=== PATIENT | male | born 1960 | race African-American/Black ===

== ENCOUNTER 2016-10-19 15:43 | Emergency (ER) | payer MEDICAID ==
[~2016-10-19] VITALS: Ht 165.1 cm; Wt 66.5 kg
[~2016-10-19 15:43] MED LIST: ENAL2.5T PO; HYDR12.53 PO
[2016-10-19 15:45] VITALS: BP 138/94
[2016-10-19] MEDS ORDERED: CYCLOBENZAPRINE 10 MG TABLET ONE (17:21)
[2016-10-19] MEDS ORDERED: CYCLOBENZAPRINE 10 MG TABLET PO SCH (17:30)
== END 2016-10-19 17:30 | disposition home or self-care (01) ==
LOC: ED 17:24
DX: S70.01XA Contusion of right hip, initial encounter (principal); M19.90 Unspecified osteoarthritis, unspecified site; I10 Essential (primary) hypertension; V03.90XA Pedestrian on foot injured in collision with car, pick-up truck or van, unspecified whether traffic or nontraffic accident, initial encounter; Y93.01 Activity, walking, marching and hiking; Y92.488 Other paved roadways as the place of occurrence of the external cause; Y99.8 Other external cause status
CPT/HCPCS: 72110; 72190; 99284

== ENCOUNTER 2016-10-30 14:46 | Emergency (ER) | payer MEDICAID ==
[~2016-10-30] VITALS: Ht 165.1 cm; Wt 68.4 kg
[2016-10-30 14:47] VITALS: BP 176/109
[2016-10-30] MEDS ORDERED: KETOROLAC 30 MG/1 ML IM ONE (15:00)
[2016-10-30] MEDS ORDERED: METHOCARBAMOL 750 MG TABLET PO ONE (15:00)
[2016-10-30] MEDS ORDERED: METHOCARBAMOL 750 MG TABLET ONE (16:00)
== END 2016-10-30 16:33 | disposition home or self-care (01) ==
LOC: ED 16:20
DX: S39.012A Strain of muscle, fascia and tendon of lower back, initial encounter (principal); I10 Essential (primary) hypertension; G89.29 Other chronic pain; M54.9 Dorsalgia, unspecified; V09.20XA Pedestrian injured in traffic accident involving unspecified motor vehicles, initial encounter; F17.210 Nicotine dependence, cigarettes, uncomplicated; Y93.01 Activity, walking, marching and hiking; Y99.8 Other external cause status; Y92.481 Parking lot as the place of occurrence of the external cause
CPT/HCPCS: 71010; 99283

== ENCOUNTER 2019-05-06 10:36 | Emergency (ER) | payer MEDICAID ==
[~2019-05-06] VITALS: Ht 165.1 cm; Wt 85.0 kg
[~2019-05-06 10:36] MED LIST changes: +HYDR12.517 PO; -HYDR12.53 PO
--- NOTE | 2019-05-06 11:04 | NUR ---
HUMAN SERVICES CASE MANAGER: PT TO ROOM FROM KELLEN LYNN
--- NOTE | 2019-05-06 11:19 | NUR ---
Pt c/o L sided cp since last night. Pt describes pain as "sharp" and 8/10 in severity, states it radiates down his arm. Pt states that he has hx of [place] x10 years ago. Pt speaking in full sentences, resp even and unlabored. Pt placed in gown, positioned for comfort in bed. Continuous heart, oxygen and BP monitors applied, all safety measures observed.
[2019-05-06] MEDS ORDERED: AMLO-150 PO (11:26)
[2019-05-06] MEDS ORDERED: DULO60CA56 PO (11:26)
[2019-05-06] MEDS ORDERED: CHOL10003 PO (11:26)
[2019-05-06] MEDS ORDERED: PREG100C PO (11:26)
--- NOTE | 2019-05-06 11:53 | NUR ---
Report to Francie GIRALDO.
[2019-05-06 11:59] LABS: ALBUMIN 3.8 g/dL (3.4-5.0); ANION GAP 5 mmol/L (5-15); CALCIUM 8.8 mg/dL (8.5-10.1); CHLORIDE 112 mmol/L (98-107)
[2019-05-06 12:02] LABS: MEAN CORPUSCULAR HEMOGLOBIN 27.4 pg (27.5-34.5); MEAN CORPUSCULAR HGB CONC 32.5 g/dL (33.2-36.2); MEAN CORPUSCULAR VOLUME 84.3 fL (81-97); MEAN PLATELET VOLUME 8.4 fL (7.4-10.4); PLATELET COUNT 252 x10^3/uL (130-400); RED BLOOD COUNT 6.32 x10^6/uL (4.38-5.82); RED CELL DISTRIBUTION WIDTH 16.1 % (9.4-14.8)
[2019-05-06 12:04] LABS: ALANINE AMINOTRANSFERASE 64 U/L (12-78); ALKALINE PHOSPHATASE 84 U/L (45-117); BILIRUBIN,TOTAL 0.7 mg/dL (0.2-1.0); CREATININE 1.79 mg/dL (0.7-1.3); TOTAL PROTEIN 7.5 g/dL (6.4-8.2); TROPONIN I < 0.015 ng/mL (0.000-0.045)
[2019-05-06 12:36] VITALS: BP 144/88
--- NOTE | 2019-05-06 12:36 | NUR ---
PT RESTING COMFORTABLY ON GURNEY. ALEC.
[2019-05-06 12:44] LABS: BASOPHILS # (AUTO) 0.03 x10^3/uL (0-0.1); BASOPHILS % (AUTO) 1 % (0-1); EOSINOPHILS # (AUTO) 0.07 x10^3/uL (0-0.4); EOSINOPHILS % (AUTO) 1 % (1-7); LYMPHOCYTES # (AUTO) 1.81 x10^3/uL (1-3.4); LYMPHOCYTES % (AUTO) 34 % (22-44); MD NO; MONOCYTES # (AUTO) 0.41 x10^3/uL (0.2-0.8); MONOCYTES % (AUTO) 8 % (2-9); NEUTROPHILS # (AUTO) 3.04 x10^3/uL (1.8-6.8); NEUTROPHILS % (AUTO) 57 % (42-75)
--- NOTE | 2019-05-06 12:51 | NUR ---
ALL RESULTS ARE BACK AT THIS TIME. CHART UP FOR RECHECK.
== END 2019-05-06 13:16 | disposition home or self-care (01) ==
LOC: ED 12:24
DX: R07.89 Other chest pain (principal); N28.9 Disorder of kidney and ureter, unspecified; I10 Essential (primary) hypertension; I25.2 Old myocardial infarction
CPT/HCPCS: 36415; 71045; 80053; 84484; 85025; 93005; 99285

== ENCOUNTER 2020-06-10 16:14 | Emergency (ER) | payer MEDICAID ==
[~2020-06-10] VITALS: Ht 165.1 cm; Wt 81.0 kg
[~2020-06-10 16:14] MED LIST changes: +AMLO-150 PO; +CHOL10003 PO; +DULO60CA56 PO; -ENAL2.5T PO; +ENAL2.5T8 PO; +PREG100C PO
--- NOTE | 2020-06-10 16:55 | NUR ---
LT SIDED CP RADIATING DOWN LT ARM AND INTERMITTENTLY IN RT ARM, DIZZINESS X2 DAYS. PT IN BED IN GOWN WITH CONT BEATER TENDER, SPO2, BP Q 30 MIN, SIDE RAILS UP X2,CALL LIGHT IN REACH.
[2020-06-10] MEDS ORDERED: ASPIRIN 81 MG TABLET CHEW ONE (17:15)
[2020-06-10 17:22] LABS: BASOPHILS % (AUTO) 1 % (0-1); EOSINOPHILS % (AUTO) 3 % (1-7); LYMPHOCYTES % (AUTO) 30 % (22-44); MD NO; MEAN CORPUSCULAR HEMOGLOBIN 27.9 pg (27.5-34.5); MEAN CORPUSCULAR HGB CONC 32.9 g/dL (33.2-36.2); MEAN PLATELET VOLUME 8.6 fL (7.4-10.4); MONOCYTES % (AUTO) 8 % (2-9); NEUTROPHILS % (AUTO) 58 % (42-75); PLATELET COUNT 243 x10^3/uL (130-400); RED BLOOD COUNT 5.62 x10^6/uL (4.38-5.82); RED CELL DISTRIBUTION WIDTH 15.1 % (9.4-14.8)
[2020-06-10 17:28] VITALS: BP 171/93
--- NOTE | 2020-06-10 17:28 | NUR ---
PT RESTING COMFORTABLY. CALL LIGHT WITHIN REACH
[2020-06-10 17:30] LABS: ALBUMIN 3.3 g/dL (3.4-5.0); ANION GAP 4 mmol/L (5-15); CALCIUM 8.3 mg/dL (8.5-10.1); CHLORIDE 111 mmol/L (98-107); CREATININE 1.28 mg/dL (0.7-1.3)
[2020-06-10] MEDS ORDERED: ASPIRIN 81 MG TABLET CHEW PO ONE (17:30)
[2020-06-10 17:34] LABS: TROPONIN I < 0.015 ng/mL (0.000-0.045)
--- NOTE | 2020-06-10 18:22 | NUR ---
DISCHARGE INSTRUCTIONS REVIEWED WITH PT. ALL QUESTIONS ANSWERED AT THIS TIME.
== END 2020-06-10 18:25 | disposition home or self-care (01) ==
LOC: ED 16:59
DX: R07.9 Chest pain, unspecified (principal); I10 Essential (primary) hypertension; I25.2 Old myocardial infarction
CPT/HCPCS: 36415; 71045; 80048; 82040; 83880; 84484; 85025; 93005; 99285